=== PATIENT | female | born 1960 | race Two or more races ===

== ENCOUNTER 2025-01-23 08:19 | Inpatient (IN) | payer BC ==
[~2025-01-23] VITALS: Ht 167.6 cm; Wt 89.6 kg
[~2025-01-23 08:19] MED LIST: ACET-2058 PO; CHOL20007 OR; CYCL-837 PO; FEXO-42 PO; LISI2.5T47 PO; MULT-1153 PO; TRAM100T32 PO
[2025-01-23] MEDS ORDERED: KETOROLAC TROMETH 30 MG/ML 1ML VIAL ONE (08:32)
[2025-01-23] MEDS ORDERED: DexAMETHasone SOD PHOS 10MG/1ML VIAL INJ ONE ×2 (08:32→10:14)
[2025-01-23] MEDS ORDERED: LIDOCAINE 1% INJ PF 5ML AMP ONE (08:32)
[2025-01-23] MEDS ORDERED: KETAMINE 50mg/ML 1ml syringe ONE (08:32)
[2025-01-23] MEDS ORDERED: PROPOFOL 10 MG/ML 20 ML IV ONE ×3 (08:32→11:21)
[2025-01-23] MEDS ORDERED: fentaNYL CITRATE 100 MCG/2 ML VL ONE (08:32)
[2025-01-23] MEDS ORDERED: ONDANSETRON HCL 4 MG/2 ML VIAL ONE (08:32)
[2025-01-23] MEDS ORDERED: GLYCOPYRROLATE 0.2 MG/ML 1ML VIAL ONE (08:32)
[2025-01-23] MEDS: CELECOXIB 100 MG CAP PO ONE (08:44)
[2025-01-23] MEDS: GABAPENTIN 300 MG CAP PO ONE (08:44)
[2025-01-23] MEDS: ACETAMINOPHEN IV 1000 MG/100ML (10MG/ML) IV ONE (08:44)
[2025-01-23] MEDS: ceFAZolin 2 GM/D5W50ml 50 ML IV ONE (10:51)
[2025-01-23] MEDS ORDERED: PHENYLEPHRINE HCL 10 MG/ML VL IV ONE (10:51)
[2025-01-23] MEDS ORDERED: oxyCODONE HCL 5MG TAB PO PRN ×2 (11:30→12:15)
[2025-01-23] MEDS ORDERED: ePHEDrine SULFATE 50 MG/ML AMP ONE (11:42)
[2025-01-23 11:58] VITALS: PULSE 90; RESP 12; O2SAT 97
[2025-01-23] MEDS ORDERED: ONDANSETRON HCL 4 MG/2 ML VIAL IV PRN ×2 (12:00→12:15)
[2025-01-23] MEDS: KETOROLAC TROMETH 30 MG/ML 1ML VIAL IV SCH (12:00)
[2025-01-23] MEDS: ACETAMINOPHEN 325 MG TAB PO SCH (12:00)
--- NOTE | 2025-01-23 12:09 | DVHOP2 ---
Operative Report - 2 Report Details Date: 01/23/25 Preop Diagnosis: Right knee degenerative arthritis Postop Diagnosis: Right knee degenerative arthritis Surgeon: Lenore Barrera MD Retail Service Lead Merchandiser: Magdalene AMEZCUA Anesthesiologist: Alin Stern CRNA Anesthesia: Regional Drains: Jessica closed wound suction Implant: DonJoy size seven femur PS, size seven tibial base plate, size 16 polyethylene, size 29 patella Consent: The patient was informed of the risks and benefits of the procedure. These include but are not limited to complications of anesthesia, postoperative infection, incomplete relief of symptoms, recurrence of symptoms, damage to blood vessels, nerves and tendons, deep venous thrombosis, pulmonary embolism and possible need for repeat surgery in the future. Complications: None Estimated Blood Loss: 100 cc Fluids: See anesthesia record Findings: Denuded cartilage eburnated bone particularly at the patellofemoral joint, osteophytes, hemosiderin stained synovium Indications for Surgery: Right knee degenerative arthritis with severe pain and functional impairment despite nonoperative management Name of Procedure Performed Right total knee arthroplasty Procedure Details Procedure Details: The patient was brought to the operating room and placed on the table in the supine position after being given spinal anesthetic with adequate analgesia obt ained. Surgical timeout was performed verifying patient, laterality and procedure Preop patient received IV cefepime IV Ancef and IV tranexamic acid. Tourniquet was applied to the lower extremity. Extremity was elevated, exsanguinated Esmarch, and tourniquet inflated. Lower extremity was prepped and draped in sterile fashion. Midline incision was made followed by medial arthr otomy. I exposed the anterior medial and lateral tibial plateau and the anterior distal femur. Bovie and aqua mantis were used for hemostasis. I excised the anterior meniscal tissue with Bovie. I excised a portion of the fat pad with Bovie. The patella was everted and the knee flexed. I drilled the distal femur and suctioned the hole to reduce the risk of fat emboli. I inse rted intramedullary guide with 5 degree valgus setting. I pinned the distal femoral cutting block anteriorly. Intramedullary saulo was removed. Distal femoral cut was made and the block removed. I brought my attention to the tibia setting up the external cutting jig for the tibia paying attention to slope, rotation and varus valgus alignment. I set the depth and pinned the block. I used the external alignment saulo to aid in checking alignment. Bone cut was made and bone removed releasing soft tissue attachments with Bovie. Cutting block removed. I then checked the extension gap and deemed adequate and removed the femur and tibia pins. I flexed the knee and applied the femoral sizing guide to the femur. I checked the size and external rotation setting at 90 degrees to Whitesides line and checking the epicondylar axis. I drilled the holes then removed the sizing guide and pin. I then tapped on the 4 in 1 cutting block and checked with the sophie wing anteriorly to make sure that I would not notch then pinned the block. Cuts were made and the block and pins were removed. Bone was removed with curved osteotome. I used a rongeur to remove any remaining osteophytes at the femur and tibia. I then used a lamina line repairer to open up the back alternating between the medial and lateral side. Any remaining meniscal tissue was excised with scalpel. I used curved osteotome, curette and rongeur to remove any posterior osteophytes. I prophylactically coagulated with aqua mantis. I then tapped on the template for the box cut and pinned it. Box cut was made and bone removed. Template and pin removed. I then tapped on the femoral trial. I then brought my attention back to the tibia sizing it. I used the external alignment saulo to make sure that rotation and alignment were good. I made a Bovie clementine at the tibial tray clementine identifying rotation for later use. I tried various tibial polytrials. [I then brought my attention to the patella. I sequentially dissected soft tissue with Bovie. I checked the thickness with caliper. I set the appropriate depth of cut on the cutting guide. I attached the cutting guide made my cut. I then sized the patella and made my drill holes. I then placed the patella trial with appropriate depth based on overall precut thickness. ] The patella tracked nicely without thumb pressure. I removed the trials. I pinned the tray and used the reamer and ke el punch. The implants were brought into the field while bone preparation was started. I used both normal saline irrigation to prepare the bone. Once cement was ready I applied cement to the tibial implant and tibial bone tapped it on and removed excess cement in usual fashion. In similar fashion I tapped on the femoral implant. I inserted the trial polyethylene and brought the knee into 30 degrees flexion. [I then applied the patella implant in similar fashion holding pressure with the pressurization device.] I irrigated with xperience irrigant. Once cement cured, I checked stability and range of motion as well as patella tracking. tourniquet was released and hemostasis maintained with aqua mantis. I inserted the polyethylene and again checked stability. I used a 2 grams of vancomycin half of which was placed deep and half superficial. I repaired the extensor mechanism with the knee in flexion with #1 Ethibond interrupted [id number]. Deep subcutaneous tissue was closed with 0 Vicryl. Superficial subcutaneous tissue was closed with 2-0 vicryl interrupted. Skin was closed with sally. I then applied the [jessica closed wound suction]. Patient tolerated the procedure well and was brought to recovery room in stable condition. Condition Stable Disposition Still a Patient LENORE BARRERA MD January 23, 2025 12:09
[2025-01-23] MEDS ORDERED: NALOXONE HCL 0.4 MG/ML VIAL IV PRN (12:15)
[2025-01-23] MEDS ORDERED: FLUMAZENIL 0.1 MG/ML INJ 10ML MDV IV PRN (12:15)
[2025-01-23] MEDS ORDERED: hydrALAZINE HCL 20 MG/ML VL IV PRN (12:15)
[2025-01-23] MEDS ORDERED: HYDROmorphone HCL 2 MG/ML VL/or syr IV PRN (12:15)
[2025-01-23] MEDS ORDERED: ePHEDrine SULFATE 50 MG/ML AMP IV PRN (12:15)
[2025-01-23] MEDS ORDERED: fentaNYL CITRATE 100 MCG/2 ML VL IV PRN (12:15)
[2025-01-23] MEDS: BUPIVACAINE 0.25% INJ 50ML VIAL ONE (12:34)
[2025-01-23] MEDS: VANCOMYCIN HCL 1000 MG VL ONE (12:34)
[2025-01-23] MEDS: SODIUM CHLORIDE 0.9% 1,000 ML IV SCH (12:38)
--- NOTE | 2025-01-23 12:43 | DVH ---
CLINICAL INFORMATION: Postop right total knee arthroplasty. TECHNIQUE: 3 views of the right knee were obtained. COMPARISON: None FINDINGS: Postsurgical changes of right total knee arthroplasty with cemented femoral and tibial com ponents. The prosthesis is in satisfactory alignment and position. Soft tissue swelling and gas withi n the soft tissues adjacent to the surgical site consistent with recent postoperative changes. Cutane ous sally overlie the anterior aspect of the right knee. Partially visualized drainage catheter. IMPRESSION: Postsurgical changes of right total knee arthroplasty in satisfactory alignment and position as descr ibed above.
[2025-01-23] MEDS ORDERED: ceFAZolin 2 GM/D5W50ml 50 ML IV SCH (14:00)
[2025-01-23] MEDS ORDERED: LISI-275 PO (14:36)
[2025-01-23] MEDS ORDERED: FEXO-42 PO (14:37)
[2025-01-23] MEDS ORDERED: ACET500T58 PO (14:37)
[2025-01-23 15:29] VITALS: BP 120/92; PULSE 93; RESP 18; O2SAT 96
[2025-01-23] MEDS: ceFAZolin 2 GM/D5W50ml 50 ML IV SCH (16:42)
[2025-01-23 21:00] VITALS: BP 122/84; PULSE 103; RESP 15; TEMP 97.9; O2SAT 93
[2025-01-23] MEDS: PREGABALIN 25 MG CAP PO SCH (21:53)
[2025-01-23] MEDS: oxyCODONE HCL 5MG TAB PO PRN (21:54)
[2025-01-24 01:00] VITALS: BP 112/78; PULSE 86; RESP 14; TEMP 98.2; O2SAT 92
[2025-01-24 05:00] VITALS: BP 116/72; PULSE 86; RESP 15; TEMP 98; O2SAT 93
[2025-01-24 06:51] LABS: Basophils # (auto) 0 10 ^3/uL (0-0.2); Basophils % (auto) 0.1 % (0.0-2.0); Eosinophils # (auto) 0 10 ^3/uL (0-0.8); Hematocrit 32.4 % (36.0-46.0); Lymphocytes # (auto) 1.4 10 ^3/uL (0.4-5.4); Mean Corpuscular Hemoglobin 31.2 pg (28.0-32.0); Mean Corpuscular Volume 91.9 fL (80.0-100.0); Monocytes # (auto) 1.4 10 ^3/uL (0-1.3); Monocytes % (auto) 10.7 % (0.0-12.0); Neutrophils # (auto) 10.7 10 ^3/uL (1.6-8.6); Neutrophils % (auto) 79.2 % (37.0-80.0); Platelet Count (auto) 231 10^3/uL (140-450); Red Blood Cells 3.52 10^6/uL (4.0-5.20); Red Cell Distribution Width 12.9 % (11.8-14.3); White Blood Cell 13.5 10^3/uL (4.4-10.8)
[2025-01-24 06:59] LABS: Chloride 105 mmol/L (98-107); Potassium 4.1 mmol/L (3.5-5.1); Sodium 138 mmol/L (136-145)
[2025-01-24 07:00] LABS: Anion Gap 9 (5-15); Calcium 9.5 mg/dL (8.7-10.4); Carbon Dioxide 24 mmol/L (20-31)
[2025-01-24 07:05] LABS: BUN/Creatinine Ratio 14.3 (10.0-20.0); Blood Urea Nitrogen 10 mg/dL (9-23)
[2025-01-24 07:06] LABS: Glucose 124 mg/dL (74-106)
[2025-01-24 08:30] VITALS: BP 115/72; PULSE 70; RESP 18; TEMP 97.9; O2SAT 98
[2025-01-24] MEDS: [UNRECOGNIZED DRUG - REMARK] PO SCH (10:00)
[2025-01-24] MEDS: LISINOPRIL 5 MG TAB PO SCH (10:00)
[2025-01-24 10:09] LABS: Hepatitis B Surface Antigen Negative (Negative)
[2025-01-24] MEDS: ASPirin-EC 81 mg tab PO SCH (10:18)
[2025-01-24] MEDS: CYCLOBENZAPRINE HCL 10 MG TAB PO SCH (10:19)
[2025-01-24 10:21] LABS: Hepatitis C Antibody Negative (Negative)
[2025-01-24 12:30] VITALS: BP 122/74; PULSE 89; RESP 19; TEMP 98.2; O2SAT 99
[2025-01-24] MEDS ORDERED: ASPI81TA28 PO (13:31)
--- NOTE | 2025-01-24 13:35 | DVHINCON2 ---
Date of service: January 24, 2025 Reason for Consultation Postop medical management while she is in the hospital History of Present Illness This is a 64-year-old female with hypertension recently started on lisinopril with a BMI of 32 and osteoarthritis of the knee/hips came to the hospital and underwent successful right knee total arthroplasty for right knee degenerative arthritis with severe pain. Postop at present patient is clinically stable. Denies any chest pain or shortness for breath. No headache dizziness or lightheadedness. Other review of systems reviewed normal. Past Medical History Hypertension, osteoarthritis, obesity with a BMI 31 Past Surgical History No prior significant surgical history Family History: Coronary artery bypass graft surgery G8 SISTER Diabetes mellitus G8 MOTHER FH: liver disease G8 SISTER FH: myocardial infarction G8 FATHER Hypertension G8 MOTHER Allergies: Coded Allergies: Chicken Allergy (Verified Allergy, Unknown, ANAPHYLAXIS, 01/23/25) Egg Yolk (Verified Allergy, Unknown, ANAPHYLAXIS, 01/23/25) Eucalyptus Oil (Verified Allergy, Unknown, FACIAL SWELLING, 01/23/25) Flu Virus Vaccine (Verified Allergy, Unknown, 01/23/25) Tea (Verified Allergy, Unknown, ITCHING, 01/23/25) Sulfa Antibiotics (Unverified Adverse Reaction, Unknown, unknown, 01/19/25) Uncoded Allergies: EGGS (Allergy, Unknown, ANAPHYLAXIS, 01/23/25) PEANUTS (Allergy, Unknown, ANAPHYLAXIS, 01/23/25) Home Meds Reported Medications Fexofenadine Hydrochloride (PRAVIN ALLERGY) 180 Mg Tab, 180 MG PO, TAB 01/23/25 Acetaminophen (Acetaminophen) 500 Mg Tab, 500 MG PO, TAB 01/23/25 Lisinopril (Lisinopril) 5 Mg Tab, 5 MG PO DAILY, TAB 01/23/25 Tramadol Hcl (TRAMADOL HCL ER) 100 Mg Tab, 50 MG PO PRN, TAB 01/19/25 Cholecalciferol (VITAMIN D3) 2,000 Unit Tab, 45080 UNIT OR QWEEKLY, TAB 01/19/25 Multiple Vitamins W/ Minerals (Centrum Minis Women 50+) 1 Tab Tab, 1 TAB PO DAILY, TAB 01/19/25 Cyclobenzaprine Hcl (Cyclobenzaprine Hcl) 5 Mg Tab, 10 MG PO DAILY, TAB 01/19/25 Fexofenadine Hydrochloride (PRAVIN ALLERGY) 180 Mg Tab, 180 MG PO DAILY, TAB 01/19/25 Discontinued Reported Medications Lisinopril (Lisinopril) 2.5 Mg Tab, 5 MG PO DAILY, TAB 01/19/25 Current Medications Current Medications Medications (Trade) Dose Ordered Sig/Micha Route PRN Reason Start Time Stop Time Status Last Admin Cyclobenzaprine HCl (Flexeril Tablet) 10 mg DAILY PO 01/24/25 10:00 01/24/25 10:19 Patient Own Medication 180 mg DAILY PO 01/24/25 10:00 Lisinopril (Zestril Tablet) 5 mg DAILY PO 01/24/25 10:00 Pregabalin (Lyrica Capsule) 50 mg BID PO 01/23/25 22:00 01/23/25 21:53 Cefazolin Sodium/ Dextrose 50 ml @ 50 mls/hr Q8HR IV 01/23/25 14:00 01/23/25 12:37 DC Aspirin (Ecotrin Enteric Coated Tablet) 81 mg BID PO 01/24/25 10:00 01/24/25 10:18 Cefazolin Sodium/ Dextrose 50 ml @ 50 mls/hr Q8H IV 01/23/25 17:00 01/24/25 01:59 DC 01/24/25 01:08 Review of Systems Other review of systems reviewed normal Vital Signs Vital Signs Date Time Temp Pulse Resp B/P (MAP) Pulse Ox O2 Delivery O2 Flow Rate FiO2 01/24/25 10:00 115/72 01/24/25 08:30 97.9 70 18 98 97.9 01/23/25 20:00 Room Air* 0 21 Physical Exam Pleasant female comfortable sitting at the edge of the bed. Alert awake oriented x3. HEENT neck supple no JVD pupils equal round react to light. Heart regular rate and rhythm S1-S2 without murmurs. Lungs fair air movement. Chest tube will expansion. No rales or wheezes. Abdomen is soft nontender nondistended positive bowel sounds. Extremities no edema positive distal pedal pulses. Right knee is covered with a dressing. Labs/Diagnostic Data Labs Test 01/24/25 06:04 01/23/25 15:44 Range/Units White Blood Count 13.5 H 4.4-10.8 10^3/uL Red Blood Count 3.52 L 4.0-5.20 10^6/uL Hemoglobin 11.0 L 12.2-16.2 g/dL Hematocrit 32.4 L 36.0-46.0 % Mean Corpuscular Volume 91.9 80.0-100.0 fL Mean Corpuscular Hemoglobin 31.2 28.0-32.0 pg Mean Corpuscular Hemoglobin Concent 34.0 32.0-36.0 g/dL Red Cell Distribution Width 12.9 11.8-14.3 % Platelet Count 231 140-450 10^3/uL Mean Platelet Volume 8.8 6.9-10.8 fL Neutrophils (%) (Auto) 79.2 37.0-80.0 % Lymphocytes (%) (Auto) 10.0 10.0-50.0 % Monocytes (%) (Auto) 10.7 0.0-12.0 % Eosinophils (%) (Auto) 0.0 0.0-7.0 % Basophils (%) (Auto) 0.1 0.0-2.0 % Neutrophils # (Auto) 10.7 H 1.6-8.6 10 ^3/uL Lymphocytes # (Auto) 1.4 0.4-5.4 10 ^3/uL Monocytes # (Auto) 1.4 H 0-1.3 10 ^3/uL Eosinophils # (Auto) 0 0-0.8 10 ^3/uL Basophils # (Auto) 0 0-0.2 10 ^3/uL Nucleated Red Blood Cells 0.0 % Sodium Level 138 136-145 mmol/L Potassium Level 4.1 3.5-5.1 mmol/L Chloride Level 105 98-107 mmol/L Carbon Dioxide Level 24 20-31 mmol/L Anion Gap 9 5-15 Blood Urea Nitrogen 10 9-23 mg/dL Creatinine 0.70 0.550-1.02 mg/dL Glomerular Filtration Rate Calc 96 >90 mL/min BUN/Creatinine Ratio 14.3 10.0-20.0 Serum Glucose 124 H 74-106 mg/dL Calcium Level 9.5 8.7-10.4 mg/dL Hepatitis B Surface Antigen Negative Negative Hepatitis C Antibody Negative Negative Assessment 1. Osteoarthritis of the knees 2. Obesity BMI 30 3. Hypertension 4. Status post right total knee arthroplasty Patient is undergoing physical therapy. Continue IV and oral pain medications while she is in the hospital. Encouraged activity and ambulation. Deep breathing exercises. CPM machine is being arranged as well as home health and home front wheel walker. Patient is advised to take baby dose aspirin twice a day for two weeks postop DVT prevention. Otherwise she is advised to continue her lisinopril after she goes home. Resume other home medications as she needs. Follow up with the her primary care physician in 1-2 weeks. Discussed with the patient as well as orthopedic surgeon regarding care plan. Plan discussed with: Patient, Other SULLY MOSES MD January 24, 2025 13:35
[2025-01-24] MEDS ORDERED: SENN-58 PO (13:45)
[2025-01-24 17:00] VITALS: BP 120/75; PULSE 75; RESP 18; TEMP 97.8; O2SAT 98
--- NOTE | 2025-01-24 18:39 | DVHPN2 ---
Progress Note Progress Note Surgery: Right total knee arthroplasty DOS: 01/23/2025 S: Reports pain currently managed with oral pain meds. Reports no acute events over night. Denies numbness/tingling. Denies CP/SOB/palpitations. Denies F/C O: Pt was awake resting comfortably in bed. Examination of the right knee reveals surgical dressing CDI. Pt able to dorsiflex and plantar flex toes and ankle (Gastroc, ant tib, peronneals). SILT over the sural, saphenous, tibial, deep and superficial peroneal nerve distribution patterns. 2+ DP, BCR, euthermic A/P: S/p right total knee arthroplasty. The patient is AFVSS and doing well. Discussed with patient the importance of keeping knee straight when lying in bed and when not doing active knee flexion exercises. - Pt should continue to work with physical therapy for mobilization. -Ambulation: WBAT RLE with use of FWW for balance and assistance. -DVT proph: Lovenox, SCD, MONTY cota -Antibiotics: Abx to be completed today -Pain Management: PO medications today -The patient will be ready to be discharged cleared by PT Plan discussed with: Patient, Other (bedside nurse) Visit Coding Surgery Date of Service if different f: January 24, 2025 Billing Provider: ALVAREZ FOSTER Surgery Visit Codes: [id number] INP/OBS CARE(MOD) ALVAREZ FOSTER January 24, 2025 18:38
--- NOTE | 2025-02-06 07:57 | DVHDS2 ---
Discharge Summary Date of Admission January 23, 2025 at 11:28 Date of Discharge: January 24, 2025 Labs/Diagnostic Data: Laboratory Results Test 01/24/25 06:04 01/23/25 15:44 White Blood Count 13.5 10^3/uL (4.4-10.8) Red Blood Count 3.52 10^6/uL (4.0-5.20) Hemoglobin 11.0 g/dL (12.2-16.2) Hematocrit 32.4 % (36.0-46.0) Mean Corpuscular Volume 91.9 fL (80.0-100.0) Mean Corpuscular Hemoglobin 31.2 pg (28.0-32.0) Mean Corpuscular Hemoglobin Concent 34.0 g/dL (32.0-36.0) Red Cell Distribution Width 12.9 % (11.8-14.3) Platelet Count 231 10^3/uL (140-450) Mean Platelet Volume 8.8 fL (6.9-10.8) Neutrophils (%) (Auto) 79.2 % (37.0-80.0) Lymphocytes (%) (Auto) 10.0 % (10.0-50.0) Monocytes (%) (Auto) 10.7 % (0.0-12.0) Eosinophils (%) (Auto) 0.0 % (0.0-7.0) Basophils (%) (Auto) 0.1 % (0.0-2.0) Neutrophils # (Auto) 10.7 10 ^3/uL (1.6-8.6) Lymphocytes # (Auto) 1.4 10 ^3/uL (0.4-5.4) Monocytes # (Auto) 1.4 10 ^3/uL (0-1.3) Eosinophils # (Auto) 0 10 ^3/uL (0-0.8) Basophils # (Auto) 0 10 ^3/uL (0-0.2) Nucleated Red Blood Cells 0.0 % Sodium Level 138 mmol/L (136-145) Potassium Level 4.1 mmol/L (3.5-5.1) Chloride Level 105 mmol/L (98-107) Carbon Dioxide Level 24 mmol/L (20-31) Anion Gap 9 (5-15) Blood Urea Nitrogen 10 mg/dL (9-23) Creatinine 0.70 mg/dL (0.550-1.02) Glomerular Filtration Rate Calc 96 mL/min (>90) BUN/Creatinine Ratio 14.3 (10.0-20.0) Serum Glucose 124 mg/dL (74-106) Calcium Level 9.5 mg/dL (8.7-10.4) Hepatitis B Surface Antigen Negative (Negative) Hepatitis C Antibody Negative (Negative) Other Laboratory Tests 01/24/25 06:04 Brief Hx & Hospital Course: Patient was brought to the hospital for a right total hip arthroplasty, she tolerated the procedure well without complications and was kept overnight for postoperative evaluation. She has remained medically stable and denied any overnight events. Patient was able to walk with the help of physical therapy and her walker and was able to get down the [place] around the nurses station and back to her room with minimal issues. Patient is otherwise feeling well and is ready to go home. Condition at Discharge: Stable Final Diagnosis/Problems List Right knee degenerative arthritis s/p TKA Discharge Disposition: Home Discharge Instruct/Medications Diet: Regular Activity: See Comment Activity comment: Patient to remain WBAT with the assistance of a walker Follow Up/Referral: follow up in 10-14 days for her first postop evaluation Medications: Rx sent via our EMR system Discharge Statement: "Patient was advised to return to the ER or call 911 if any headaches, dizziness, shortness of breath, chest pain, abdominal pain, bleeding, fevers, or worsening of medical condition. Patient was counseled about treatment plan, medications, possible side effects, patientverbalized understanding. All questions were answered to the best of my ability. This discharge took greater then 30 minutes in planning, reviewing documentation, counseling the patient, and discussing with other team members." ASSESSMENT ASSESSMENT Assessment Right knee degenerative arthritis s/p TKA PATRICK MCKNIGHT February 06, 2025 07:57
== END 2025-01-24 18:00 | disposition home or self-care (01) | DRG 470 ==
LOC: SUR 08:19 → OVERFLOW 11:28 → EAST 15:58
PROVIDERS: ADMIT Orthopaedic Surgery; ATTEND Orthopaedic Surgery
PROC: 0SRC0J9 Replacement of Right Knee Joint with Synthetic Substitute, Cemented, Open Approach (ICD-10-PCS; principal; 2025-01-23 09:47)
DX: M17.11 Unilateral primary osteoarthritis, right knee (principal); I10 Essential (primary) hypertension; E66.9 Obesity, unspecified; Z83.3 Family history of diabetes mellitus; Z82.49 Family history of ischemic heart disease and other diseases of the circulatory system; Z91.012 Allergy to eggs; Z91.010 Allergy to peanuts; Z88.2 Allergy status to sulfonamides; Z91.018 Allergy to other foods; Z91.09 Other allergy status, other than to drugs and biological substances; Z79.899 Other long term (current) drug therapy; Z79.1 Long term (current) use of non-steroidal anti-inflammatories (NSAID); Z68.30 Body mass index [BMI] 30.0-30.9, adult
CPT/HCPCS: 36415; 73562; 80048; 85025; 86803; 86850; 86900; 86901; 87340; 97116; 97163; 97530; G0378; J0131; J1100; J1885; J2405; J2704; J3490